=== PATIENT | male | born 1980 | race American Indian/Alaskan Native ===

== ENCOUNTER 2017-09-19 00:36 | Emergency (ER) | payer SELFPAY ==
[2017-09-19 01:09] VITALS: BP 133/92
--- NOTE | 2017-09-19 01:32 | XRay Report ---
FINAL REPORT PROCEDURE: XR HAND 2V LT TECHNIQUE: LEFT hand radiographs, AP and lateral views. CPT 64292-GX HISTORY: Swelling of left middle finger COMPARISON: No prior studies are available for comparison. FINDINGS: Fracture (s) and/or Dislocation(s): None . Alignment: Normal . Joint space(s): Normal . Soft tissues: Normal . Bone mineralization: Normal . Foreign bodies: None . IMPRESSION: Normal Examination .
== END 2017-09-19 02:15 | disposition left against medical advice (07) ==
LOC: ED 00:36
DX: M79.642 Pain in left hand (principal); Z53.21 Procedure and treatment not carried out due to patient leaving prior to being seen by health care provider